=== PATIENT | female | born 1960 | race Caucasian/White ===

== ENCOUNTER 2018-02-23 19:55 | Emergency (ER) | payer OTHER ==
[~2018-02-23] VITALS: Ht 167.6 cm; Wt 110.0 kg
[2018-02-23 20:11] VITALS: BP 218/102; PULSE 96; RESP 20; TEMP 99.5; O2SAT 96
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
[2018-02-23 21:34] VITALS: BP 170/112; PULSE 83; RESP 16; O2SAT 96
[2018-02-23] MEDS ORDERED: CETIRIZINE HCL SYRUP 10 MG/10 ML UDC PO ONE (22:15)
== END 2018-02-23 23:52 | disposition home or self-care (01) ==
LOC: NEPB 19:55
DX: R07.89 Other chest pain (principal); J45.909 Unspecified asthma, uncomplicated; I10 Essential (primary) hypertension; Z77.098 Contact with and (suspected) exposure to other hazardous, chiefly nonmedicinal, chemicals
CPT/HCPCS: 82805; 99283